=== PATIENT | female | born 1980 | race African-American/Black ===

== ENCOUNTER 2017-08-08 01:31 | Emergency (ER) | payer BC ==
[2017-08-08] MEDS ORDERED: Penicillin V Potassium 250 MG TAB ONE (01:55)
[2017-08-08] MEDS ORDERED: traMADol HCl 50 MG TAB ONE (01:55)
== END 2017-08-08 02:20 | disposition home or self-care (01) ==
LOC: NAV ERS 01:31
DX: K02.9 Dental caries, unspecified (principal)
CPT/HCPCS: 99282

== ENCOUNTER 2018-06-18 03:13 | Emergency (ER) | payer BC ==
[2018-06-18] MEDS ORDERED: Acetaminophen 500 MG TAB ONE (03:42)
== END 2018-06-18 03:44 | disposition home or self-care (01) ==
LOC: NAV ERS 03:13
DX: H69.91 Unspecified Eustachian tube disorder, right ear (principal)
CPT/HCPCS: 99283

== ENCOUNTER 2018-11-11 19:39 | Emergency (ER) | payer BC ==
[2018-11-11] MEDS ORDERED: Clindamycin 150 MG CAP ONE (20:02)
[2018-11-11] MEDS ORDERED: Naproxen 500 MG TAB ONE (20:02)
== END 2018-11-11 20:05 | disposition home or self-care (01) ==
LOC: NAV ERS 19:39
DX: S80.862A Insect bite (nonvenomous), left lower leg, initial encounter (principal); L03.116 Cellulitis of left lower limb; W57.XXXA Bitten or stung by nonvenomous insect and other nonvenomous arthropods, initial encounter
CPT/HCPCS: 99282